=== PATIENT | female | born 1980 | race Caucasian/White ===

== ENCOUNTER 2020-03-29 09:30 | Outpatient (RCR) | payer OTHER, SELFPAY ==
--- NOTE | 2020-02-03 13:11 | HP.PTEVAL ---
Patient's Visit Information GELA BRAVO is a 39 year old F referred to Physical Therapy by GIA Whitman with a diagnosis of . Date of Evaluation: Physical Therapist: Fallon Solis, PT, Cert MDT - Anticipated Interventions Thank you for the opportunity to evaluate your patient. For Medicare and Medicare HMO plans, please review the plan of care and approve it. It will need to be FAXED BACK to us at [phone] for Medicare purposes. For Medicare only, by signing this I certify the plan of care. Please let me know if there are questions or concerns regarding this plan of care. Physician Signature: Date:
--- NOTE | 2020-03-01 13:43 | HP.PTREVAL_ITS ---
Rocio Valdivia, AUTOMOTIVE MECHANICAL ENGINEER-C, It has been my pleasure to treat GELA BRAVO over the last 10 visits for BACK PAIN. Please see the progress note below for an update on the physical therapy plan of care! Subjective: PATIENT REPORTS SHE IS CONTINUEING TO GET BETTER. WAS SORE ABOUT 30 MINUTES AFTER SHE LEFT BUT THEN IT EASED AND SHE IS BETTER OVER-ALL. PATIENT REPORTS SHE DID HER EX'S ABOUT AN HOUR AGO. STATES SHE HAS NOT RESUMED FULL DUTY AT WORK IN TERMS OF LIFTING BUT IS EASING INTO IT. Objective/Function: PATIENT WAS SEEN TODAY FOR RE-ASSESSMENT OF PROGRESS TOWARD THE SET PT GOALS AND THE NEED FOR FURTHER PHYSICAL THERAPY VS READINESS FOR DISCHARGE. PATIENT REPORTS SHE IS STILL TAKING TWO IBUPROFEN TWICE A DAY. SHE ALSO HAS NOT RESUMED FULL DUTY WITH LIFTING AT WORK YET AND WORK CAN INVOLVE A LOT OF LIFTING. OVER-ALL PATIENT IS MAKING GREAT PROGRESS TOWARD ALL PT GOALS. UPON EXAM TODAY: Active Correction of posture: DOES NOT INCREASE PAIN. Other Observations: INDEP GAIT INTO PT WITH NO GROSS DEVIATIONS NOTED NOW. Motor deficit: EMILY LE STRENGTH GROSSLY 5/5 WITH MMT'ING. ROM deficit: EMILY LE'S WFL. Lumbar mvmt loss: flex - NIL. ext - MIN TO MOD. R SG - MOD. L SG - MIN. NO C/O INCREASED PAIN WITH LUMBAR ROM TESTING TODAY. Core strength: POOR BUT IMPROVING. Plan Plan: DECREASE PT TO 1X/WEEK X 4 WEEKS FOR CORE STRENGTHENING PROGRESSION PATIENT EASES BACK INTO FULL DUTY LIFTING AT WORK AND PAIN CONTINUES TO DECREASE. PATIENT IS AGREEABLE. Goals Goal 1:: DECREASE C/O BACK PAIN Goal Time Frame: 4-6 Weeks Goal Progress: Progressing Goal 2:: IMPROVE PERSONAL CARE, LIFTING, WALKING, SITTING, STANDING, SLEEP, SOCIAL LIFE, TRAVEL, WORK AND HOMEMAKING FUNCTION Goal Time Frame: 4-6 Weeks Goal Progress: Progressing Goal 3:: INSTRUCT IN PROPHYLAXIS Goal Time Frame: 4-6 Weeks Goal Progress: Progressing Anticipated Interventions Patient/Client Instruction: Educate patient on: Condition, Plan of Care, Risk Factors, Benefits of Fitness Program For the Purpose of:: To improve self management Therapeutic Exercise to Include: Strength training, Body mechanics, Postural training, Neuromotor development, Dynamic Lumbar Stabilization For the Purpose of:: To decrease pain, To improve muscle performance and motor function, To increase tolerance to activity/condition/position, To improve ability of physical actions for home/community/work/leisure TENS: Yes IF ES: Yes Cryotherapy (ice pack, ice massage): Yes Thermo therapy (hot pack): Yes Ultrasound (thermal/non thermal): Yes For the Purpose of:: To decrease pain, To decrease swelling/inflammation, To im prove nutrient delivery to tissue Please do not hesitate to contact me at [phone] by phone or if you have questions or concerns regarding this new plan of care! Sincerely, Fallon Solis, PT, Cert MDT
--- NOTE | 2020-03-29 10:05 | HP.PTDCSUM ---
It has been my pleasure to treat GELA BRAVO referred by GIA Whitman, with the diagnosis of BACK PAIN for a total of 14 visit(s). Discharge Date: 03/29/20 Please see the following information for a summary of their discharge status. Subjective: DID MORE LIFTING AT WORK YESTERDAY AND IT WENT FINE. PATIENT REPORTS SHE CAN'T RECALL THE LAST TIME SHE HAD ANY SIGNIFICANT PAIN. HEP IS GOING WELL. RIGHT LOW BACK Pain Intensity (Out of 10): 1 RIGHT LE Pain Intensity (Out of 10): 0 % Improvement: 100 Objective/Function: PATIENT WAS SEEN TODAY FOR RE-ASSESSMENT OF PROGRESS TOWARD THE SET PT GOALS AND THE NEED FOR FURTHER PHYSICAL THERAPY VS READINESS FOR DISCHARGE. ALL GOALS MET. UPON EXAM TODAY: PATIENT HAS LUMBAR ROM ALL PLANES WFL BUT MIN MVMT LOSS INTO EXT. NO PAIN WITH TESTING. PATIENT IS ABLE TO SQUAT DOWN FAR ENOUGH TO PICK SOMETHING UP OFF THE FLOOR NOW WITHOUT PAIN. CORE STRENGTH IS FAIR AND SHE HAS EX'S TO CONTINUE TO WORK ON THIS. EMILY LE STRENGTH IS GROSSLY 5/5. PATIENT IS INDEP WITH A HEP AND HAS RESUMED ALL NORMAL ACTIVITY. WRITTEN HEP PROVIDED Goal 1:: DECREASE C/O BACK PAIN Goal Progress: Goal Met Goal 2:: IMPROVE PERSONAL CARE, LIFTING, WALKING, SITTING, STANDING, SLEEP, SOCIAL LIFE, TRAVEL, WORK AND HOMEMAKING FUNCTION Goal Progress: Goal Met Goal 3:: INSTRUCT IN PROPHYLAXIS Goal Progress: Goal Met Plan: D/C. PATIENT AGREEABLE. If there are questions or concerns regarding this patient's physical therapy, please feel free to call me at [phone]. Thank you for the referral of this patient. Sincerely, Fallon Solis, PT, Cert MDT
== END 2020-03-29 19:00 | disposition home or self-care (01) ==
LOC: PT 09:30
PROVIDERS: PCP Internal Medicine; Referring Provider Nurse Practitioner; Visit Provider Nurse Practitioner
DX: M54.9 Dorsalgia, unspecified (principal)
CPT/HCPCS: 97014; 97110; 97112; 97162; 97164; 97530; G0283